=== PATIENT | female | born 1980 | race African-American/Black ===

== ENCOUNTER 2016-06-23 09:47 | Emergency (ER) | payer BC, MEDICAID ==
[~2016-06-23] VITALS: Ht 167.6 cm; Wt 217.3 kg
[~2016-06-23 09:47] MED LIST: CEFTIN250 MG PO; CIPRO 500MG TA500 MG PO; CLINDAMYCIN150 MG PO; FORTAMET500 MG PO; K-DUR 10 MEQ T10 MEQ; LORTAB 5/500 501 TAB PO; METFORMIN500 MG PO; NO HOME MEDICATIONS; PHENERGAN25 MG RC; PREDNISONE10 MG PO; PREDNISONE20 MG PO; PRENATAL VITAMI1 TA5 PO; PRENATAL1 TA1 PO; PRENATAL1 TA6 PO; PROAIR HFA0.09 MG/AC IH; PROVENTIL0.09 MG/A1 IH; TUSS PO; ZESTRIL 5MG5 MG PO; ZITHROMAX 250M250 MG PO; ZOFRAN 4MG T4 MG/TAB PO
[2016-06-23] MEDS ORDERED: FLEXERIL 1010 MG/TAB PO (11:10)
[2016-06-23] MEDS ORDERED: IBU800 M1 PO (11:10)
[2016-06-23 11:38] VITALS: BP 132/85; PULSE 72
== END 2016-06-23 11:39 | disposition home or self-care (01) ==
LOC: COL.ER 09:47
DX: M54.12 Radiculopathy, cervical region (principal)
CPT/HCPCS: J1885; J2360

== ENCOUNTER 2016-10-15 20:07 | Emergency (ER) | payer BC ==
[~2016-10-15] VITALS: Ht 167.6 cm; Wt 214.5 kg
[~2016-10-15 20:07] MED LIST changes: +FLEXERIL 1010 MG/TAB PO; +IBU800 M1 PO
[2016-10-15 20:15] VITALS: TEMP 98.7
[2016-10-15 21:13] VITALS: BP 175/93; PULSE 92
[2016-10-15 21:45] LABS: HIV 1/2 Antibodies Non-Reactive; HIV-1p24 Antigen Non-Reactive
== END 2016-10-15 21:59 | disposition home or self-care (01) ==
LOC: COL.ER 20:07
PROVIDERS: Nurse Practitioner
DX: Z20.6 Contact with and (suspected) exposure to human immunodeficiency virus [HIV] (principal); I10 Essential (primary) hypertension; J45.909 Unspecified asthma, uncomplicated; Z98.890 Other specified postprocedural states

== ENCOUNTER 2016-12-14 02:54 | Emergency (ER) | payer BC, OTHER ==
[2016-12-14 02:57] VITALS: BP 181/98; TEMP 98.2
[2016-12-14 03:36] LABS: COLLECTION METHOD CLEAN CATCH
[2016-12-14 03:41] LABS: MUCOUS Present /lpf; PH 7 (5-8); URINE APPEARANCE Clear; URINE BACTERIA Rare /hpf; URINE BILIRUBIN Negative (NEGATIVE); URINE BLOOD Negative (NEGATIVE); URINE COLOR Yellow; URINE GLUCOSE Negative (NEGATIVE); URINE KETONE Negative (NEGATIVE); URINE LEUKOCYTE ESTERASE Negative (NEGATIVE); URINE NITRATE Negative (NEGATIVE); URINE PROTEIN(semi-quant) Negative (NEGATIVE); URINE RBC 0-2 /hpf; URINE UROBILINOGEN Negative (NEGATIVE)
[2016-12-14 04:47] VITALS: PULSE 80
== END 2016-12-14 04:49 | disposition home or self-care (01) ==
LOC: COL.ER 02:54
PROVIDERS: Emergency Medicine
DX: R10.32 Left lower quadrant pain (principal); A54.9 Gonococcal infection, unspecified; Z32.02 Encounter for pregnancy test, result negative

== ENCOUNTER 2017-03-05 19:30 | Emergency (ER) | payer BC ==
[~2017-03-05] VITALS: Ht 167.6 cm; Wt 188.6 kg
[2017-03-05 19:36] VITALS: BP 181/86; TEMP 97.8
[2017-03-05 22:17] VITALS: PULSE 92
== END 2017-03-05 22:52 | disposition home or self-care (01) ==
LOC: COL.ER 19:30
DX: M79.672 Pain in left foot (principal); M79.662 Pain in left lower leg; J45.909 Unspecified asthma, uncomplicated; I10 Essential (primary) hypertension; Z98.890 Other specified postprocedural states

== ENCOUNTER → 2017-06-13 | Outpatient (CLI) | payer BC | LOC: COL.RAD 07:08 | DX: K76.0 Fatty (change of) liver, not elsewhere classified (principal); I51.7 Cardiomegaly; E66.01 Morbid (severe) obesity due to excess calories | CPT/HCPCS: Q9967 ==

== ENCOUNTER 2017-09-09 00:59 | Emergency (ER) | payer BC ==
[~2017-09-09] VITALS: Ht 167.6 cm; Wt 209.5 kg
[2017-09-09 01:02] VITALS: TEMP 98.1
[2017-09-09] MEDS ORDERED: MAXZIDE-25MG TA1 TAB PO (01:36)
[2017-09-09 02:04] VITALS: BP 148/90; PULSE 90
== END 2017-09-09 02:07 | disposition home or self-care (01) ==
LOC: COL.ER 00:59
DX: F41.9 Anxiety disorder, unspecified (principal); J45.909 Unspecified asthma, uncomplicated

== ENCOUNTER 2017-09-21 00:42 | Emergency (ER) | payer BC ==
[~2017-09-21] VITALS: Ht 167.6 cm; Wt 214.1 kg
[~2017-09-21 00:42] MED LIST changes: +MAXZIDE-25MG TA1 TAB PO
[2017-09-21 00:45] VITALS: BP 170/85; TEMP 98.2
[2017-09-21] MEDS ORDERED: ASPIRIN 81M81 MG/TA2 (01:01)
[2017-09-21 02:19] LABS: BASO % 0.2 % (0.0-2.0); EOS # 0.2 (0.0-0.7); EOS % 2.1 % (0-4.0); GRAN # 5.3 (1.4-6.5); GRAN % 53.9 % (42.2-75.2); HEMATOCRIT 33.6 % (37.0-47.0); LYMPH # 3.5 (1.2-3.4); LYMPH % 35.7 % (20.0-51.0); MEAN CELL VOLUME 84 fl (80.0-100.0); MEAN CORPUSCULAR HEMOGLOBIN 28 pg (27.0-31.0); MEAN CORPUSCULAR HGB CONC 33 g/dl (33.0-37.0); MEAN PLATELET VOLUME 9.3 fl (7.4-10.4); MONO # 0.8 (0.1-0.6); MONO % 7.8 % (1.7-9.3); PLATELET COUNT 351 K/mm3 (130-400); RED BLOOD COUNT 3.99 M/mm3 (4.10-5.30); REDCELL DISTRIBUTION WIDTH-CV 14.1 % (11.5-14.5)
[2017-09-21 02:29] LABS: ALANINE AMINOTRANSFERASE 29 U/L (9-52); ALBUMIN 3.5 gm/dL (3.5-5.0); ALKALINE PHOSPHATASE 76 U/L (50-136); ANION GAP 10 mmol/L (7-16); AST,SGOT 23 U/L (15-37); BILIRUBIN,TOTAL 0.3 mg/dL (0.0-1.0); BLOOD UREA NITROGEN 13 mg/dL (7-17); CALCIUM 8.9 mg/dL (8.4-10.2); CARBON DIOXIDE 28 mmol/L (22-30); CHLORIDE 100 mmol/L (98-107); CREATININE, serum 0.71 mg/dL (0.52-1.25); GLUCOSE 129 mg/dL (74-106); LIPASE 43 U/L (23-300); POTASSIUM 3.3 mmol/L (3.4-5.0); SODIUM 138 mmol/L (137-145); TOTAL PROTEIN 7.4 gm/dL (6.4-8.2)
[2017-09-21 02:41] LABS: TROPONIN-I < 0.012 ng/mL (0.000-0.034)
[2017-09-21] MEDS ORDERED: FLEXERIL 1010 MG/TAB PO (02:57)
[2017-09-21 03:03] VITALS: PULSE 85
== END 2017-09-21 03:03 | disposition home or self-care (01) ==
LOC: COL.ER 00:42
PROVIDERS: Emergency Medicine
DX: M79.602 Pain in left arm (principal); I10 Essential (primary) hypertension; E66.9 Obesity, unspecified; Z98.51 Tubal ligation status

== ENCOUNTER 2017-10-19 20:37 | Emergency (ER) | payer BC ==
[~2017-10-19] VITALS: Ht 167.6 cm; Wt 208.6 kg
[~2017-10-19 20:37] MED LIST changes: +ASPIRIN 81M81 MG/TA2
[2017-10-19 20:43] VITALS: BP 181/100; PULSE 111; TEMP 98.1
== END 2017-10-19 22:32 | disposition home or self-care (01) ==
LOC: COL.ER 20:37
DX: L73.9 Follicular disorder, unspecified (principal); I10 Essential (primary) hypertension; E66.9 Obesity, unspecified; Z79.82 Long term (current) use of aspirin; Z68.45 Body mass index [BMI] 70 or greater, adult

== ENCOUNTER 2017-11-06 20:20 | Emergency (ER) | payer BC ==
[~2017-11-06] VITALS: Ht 167.6 cm; Wt 207.3 kg
[2017-11-06 20:31] VITALS: TEMP 97.2
[2017-11-06 20:52] LABS: BASO % 0.3 % (0.0-2.0); EOS # 0.3 (0.0-0.7); EOS % 2.9 % (0-4.0); GRAN % 43.3 % (42.2-75.2); LYMPH # 4.4 (1.2-3.4); LYMPH % 46.9 % (20.0-51.0); MEAN CELL VOLUME 84 fl (80.0-100.0); MEAN CORPUSCULAR HEMOGLOBIN 27 pg (27.0-31.0); MEAN CORPUSCULAR HGB CONC 33 g/dl (33.0-37.0); MEAN PLATELET VOLUME 9.3 fl (7.4-10.4); MONO # 0.6 (0.1-0.6); MONO % 6.3 % (1.7-9.3); PLATELET COUNT 388 K/mm3 (130-400); RED BLOOD COUNT 4.38 M/mm3 (4.10-5.30); REDCELL DISTRIBUTION WIDTH-CV 14.3 % (11.5-14.5)
[2017-11-06 21:00] LABS: HEMATOCRIT 36.6 % (37.0-47.0)
[2017-11-06 21:02] LABS: PROTHROMBIN TIME 11.5 SECONDS (9.7-12.8)
[2017-11-06 21:05] LABS: PARTIAL THROMBOPLASTIN TIME 34.6 SECONDS (26.0-37.0)
[2017-11-06 21:16] LABS: ALANINE AMINOTRANSFERASE 30 U/L (9-52); ALBUMIN 4.1 gm/dL (3.5-5.0); ALKALINE PHOSPHATASE 63 U/L (50-136); AST,SGOT 45 U/L (15-37); BILIRUBIN,TOTAL 0.3 mg/dL (0.0-1.0); BLOOD UREA NITROGEN 14 mg/dL (7-17); CALCIUM 8.9 mg/dL (8.4-10.2); CARBON DIOXIDE 27 mmol/L (22-30); CREATININE, serum 0.61 mg/dL (0.52-1.25); GLUCOSE 154 mg/dL (74-106); POTASSIUM 3.4 mmol/L (3.4-5.0); SODIUM 139 mmol/L (137-145); TOTAL PROTEIN 7.9 gm/dL (6.4-8.2)
[2017-11-06 21:18] LABS: CHLORIDE 100 mmol/L (98-107)
[2017-11-06 21:19] LABS: ANION GAP 12 mmol/L (7-16)
[2017-11-06 21:28] LABS: TROPONIN-I < 0.012 ng/mL (0.000-0.034)
[2017-11-06] MEDS ORDERED: FLEXERIL 1010 MG/TAB PO (21:41)
[2017-11-06] MEDS ORDERED: LOPRESSOR 225 MG/TAB PO (21:41)
[2017-11-06 22:11] VITALS: BP 149/90; PULSE 102
== END 2017-11-06 22:11 | disposition home or self-care (01) ==
LOC: COL.ER 20:20
PROVIDERS: Family Medicine
DX: R07.89 Other chest pain (principal); M54.12 Radiculopathy, cervical region; I10 Essential (primary) hypertension; R00.2 Palpitations

== ENCOUNTER 2018-03-29 14:46 | Emergency (ER) | payer BC ==
[~2018-03-29] VITALS: Ht 167.6 cm; Wt 208.2 kg
[~2018-03-29 14:46] MED LIST changes: +LOPRESSOR 225 MG/TAB PO
[2018-03-29 14:51] VITALS: TEMP 97
[2018-03-29] MEDS ORDERED: PRINIVIL20 MG PO (15:13)
[2018-03-29] MEDS ORDERED: PROAIR HFA0.09 MG/AC IH (15:13)
[2018-03-29] MEDS ORDERED: GLUCOPHAGE XR500 M1 PO (15:13)
[2018-03-29 15:32] LABS: BASO % 0.2 % (0.0-2.0); EOS # 0.2 (0.0-0.7); EOS % 1.7 % (0-4.0); GRAN # 5.3 (1.4-6.5); GRAN % 57.6 % (42.2-75.2); HEMATOCRIT 38.2 % (37.0-47.0); HEMOGLOBIN 12.7 g/dl (12.5-16.0); LYMPH % 32.6 % (20.0-51.0); MEAN CELL VOLUME 85 fl (80.0-100.0); MEAN CORPUSCULAR HEMOGLOBIN 28 pg (27.0-31.0); MEAN CORPUSCULAR HGB CONC 33 g/dl (33.0-37.0); MEAN PLATELET VOLUME 9.3 fl (7.4-10.4); MONO # 0.7 (0.1-0.6); MONO % 7.6 % (1.7-9.3); PLATELET COUNT 374 K/mm3 (130-400)
[2018-03-29 15:50] LABS: ALBUMIN 4.1 gm/dL (3.5-5.0); BILIRUBIN,TOTAL 0.2 mg/dL (0.0-1.0); C-REACTIVE PROTEIN 2.6 mg/dL (0.0-0.9); CALCIUM 9.5 mg/dL (8.4-10.2); CREATININE, serum 0.7 mg/dL (0.52-1.25); POTASSIUM 3.4 mmol/L (3.4-5.0); TOTAL PROTEIN 7.9 gm/dL (6.4-8.2)
[2018-03-29 16:17] LABS: HIV 1/2 Antibodies Non-Reactive; HIV-1p24 Antigen Non-Reactive
[2018-03-29 16:41] VITALS: BP 156/80; PULSE 80
== END 2018-03-29 16:43 | disposition home or self-care (01) ==
LOC: COL.ER 14:46
PROVIDERS: Emergency Medicine
DX: Z20.2 Contact with and (suspected) exposure to infections with a predominantly sexual mode of transmission (principal); J45.909 Unspecified asthma, uncomplicated; E11.9 Type 2 diabetes mellitus without complications; I10 Essential (primary) hypertension; E66.01 Morbid (severe) obesity due to excess calories; Z68.45 Body mass index [BMI] 70 or greater, adult; Z79.84 Long term (current) use of oral hypoglycemic drugs
CPT/HCPCS: J0696

== ENCOUNTER 2018-04-07 10:11 | Emergency (ER) | payer BC ==
[~2018-04-07] VITALS: Ht 167.6 cm; Wt 205.0 kg
[~2018-04-07 10:11] MED LIST changes: +GLUCOPHAGE XR500 M1 PO; +PRINIVIL20 MG PO
[2018-04-07 10:14] VITALS: TEMP 98.6
[2018-04-07 11:09] LABS: COLLECTION METHOD CLEAN CATCH
[2018-04-07 11:13] LABS: BASO % 0.3 % (0.0-2.0); EOS # 0.2 (0.0-0.7); EOS % 2.3 % (0-4.0); GRAN # 3.4 (1.4-6.5); HEMATOCRIT 39.8 % (37.0-47.0); HEMOGLOBIN 12.7 g/dl (12.5-16.0); LYMPH # 2.6 (1.2-3.4); LYMPH % 38.2 % (20.0-51.0); MEAN CELL VOLUME 86 fl (80.0-100.0); MEAN CORPUSCULAR HEMOGLOBIN 28 pg (27.0-31.0); MEAN CORPUSCULAR HGB CONC 32 g/dl (33.0-37.0); MEAN PLATELET VOLUME 9.3 fl (7.4-10.4); MONO # 0.7 (0.1-0.6); MONO % 9.9 % (1.7-9.3); PLATELET COUNT 393 K/mm3 (130-400); RED BLOOD COUNT 4.61 M/mm3 (4.10-5.30); REDCELL DISTRIBUTION WIDTH-CV 13.6 % (11.5-14.5)
[2018-04-07 11:25] LABS: ALBUMIN 4.1 gm/dL (3.5-5.0); BILIRUBIN,TOTAL 0.4 mg/dL (0.0-1.0); CALCIUM 9.3 mg/dL (8.4-10.2); CREATININE, serum 0.65 mg/dL (0.52-1.25); POTASSIUM 3.3 mmol/L (3.4-5.0); TOTAL PROTEIN 7.9 gm/dL (6.4-8.2)
[2018-04-07 11:27] LABS: PH 6 (5-8); SQUAMOUS EPITHELIAL 0-2 /hpf; URINE APPEARANCE Hazy; URINE BACTERIA None Seen /hpf; URINE BILIRUBIN Negative (NEGATIVE); URINE BLOOD 3+ (NEGATIVE); URINE COLOR Yellow; URINE GLUCOSE Negative (NEGATIVE); URINE KETONE Negative (NEGATIVE); URINE LEUKOCYTE ESTERASE 2+ (NEGATIVE); URINE NITRATE Negative (NEGATIVE); URINE PROTEIN(semi-quant) 2+ (NEGATIVE); URINE RBC >50 /hpf; URINE UROBILINOGEN Negative (NEGATIVE)
[2018-04-07] MEDS ORDERED: CEPHALEXIN500 M1 PO (13:21)
[2018-04-07] MEDS ORDERED: NORCO 325 MG-7.1 TAB PO (13:51)
[2018-04-07 14:07] VITALS: BP 148/60; PULSE 82
== END 2018-04-07 14:08 | disposition home or self-care (01) ==
LOC: COL.ER 10:11
PROVIDERS: Physician Assistant
DX: N30.00 Acute cystitis without hematuria (principal); N20.1 Calculus of ureter; E11.9 Type 2 diabetes mellitus without complications; I10 Essential (primary) hypertension; E66.01 Morbid (severe) obesity due to excess calories; Z68.45 Body mass index [BMI] 70 or greater, adult; Z79.84 Long term (current) use of oral hypoglycemic drugs; Z90.49 Acquired absence of other specified parts of digestive tract; Z88.6 Allergy status to analgesic agent
CPT/HCPCS: J1885; J2550; J3010; J7030; Q9967

== ENCOUNTER 2018-04-19 23:38 | Emergency (ER) | payer BC ==
[~2018-04-19] VITALS: Ht 167.6 cm; Wt 205.0 kg
[~2018-04-19 23:38] MED LIST changes: +CEPHALEXIN500 M1 PO; +NORCO 325 MG-7.1 TAB PO
[2018-04-19 23:41] VITALS: TEMP 97.6
[2018-04-20] MEDS ORDERED: FLEXERIL 1010 MG/TAB PO (00:20)
[2018-04-20 00:43] LABS: COLLECTION METHOD CLEAN CATCH
[2018-04-20 00:50] LABS: PH 5 (5-8); URINE APPEARANCE Clear; URINE BACTERIA None Seen /hpf; URINE BILIRUBIN Negative (NEGATIVE); URINE BLOOD Negative (NEGATIVE); URINE COLOR Yellow; URINE GLUCOSE Negative (NEGATIVE); URINE KETONE Negative (NEGATIVE); URINE LEUKOCYTE ESTERASE Negative (NEGATIVE); URINE NITRATE Negative (NEGATIVE); URINE PROTEIN(semi-quant) Negative (NEGATIVE); URINE RBC 0-2 /hpf; URINE UROBILINOGEN Negative (NEGATIVE)
[2018-04-20 01:01] LABS: BASO % 0.4 % (0.0-2.0); EOS # 0.2 (0.0-0.7); EOS % 2.2 % (0-4.0); GRAN # 3.9 (1.4-6.5); GRAN % 46.6 % (42.2-75.2); HEMOGLOBIN 11.8 g/dl (12.5-16.0); LYMPH # 3.5 (1.2-3.4); LYMPH % 41.8 % (20.0-51.0); MEAN CELL VOLUME 85 fl (80.0-100.0); MEAN CORPUSCULAR HEMOGLOBIN 28 pg (27.0-31.0); MEAN CORPUSCULAR HGB CONC 33 g/dl (33.0-37.0); MEAN PLATELET VOLUME 9.3 fl (7.4-10.4); MONO # 0.7 (0.1-0.6); MONO % 8.6 % (1.7-9.3); PLATELET COUNT 358 K/mm3 (130-400); RED BLOOD COUNT 4.25 M/mm3 (4.10-5.30); REDCELL DISTRIBUTION WIDTH-CV 13.8 % (11.5-14.5)
[2018-04-20 01:02] LABS: HEMATOCRIT 36.3 % (37.0-47.0)
[2018-04-20 01:12] LABS: ALANINE AMINOTRANSFERASE 18 U/L (9-52); ALBUMIN 3.7 gm/dL (3.5-5.0); ALKALINE PHOSPHATASE 62 U/L (50-136); ANION GAP 4 mmol/L (7-16); AST,SGOT 18 U/L (15-37); BILIRUBIN,TOTAL 0.2 mg/dL (0.0-1.0); BLOOD UREA NITROGEN 15 mg/dL (7-17); CARBON DIOXIDE 31 mmol/L (22-30); CHLORIDE 101 mmol/L (98-107); CREATININE, serum 0.62 mg/dL (0.52-1.25); GLUCOSE 142 mg/dL (74-106); POTASSIUM 3.5 mmol/L (3.4-5.0); SODIUM 136 mmol/L (137-145)
[2018-04-20 01:23] LABS: TROPONIN-I < 0.012 ng/mL (0.000-0.034)
[2018-04-20] MEDS ORDERED: FLAGYL500 MG PO (02:14)
[2018-04-20 02:20] VITALS: BP 131/80; PULSE 91
== END 2018-04-20 02:22 | disposition home or self-care (01) ==
LOC: COL.ER 23:38
PROVIDERS: Nurse Practitioner
DX: N76.0 Acute vaginitis (principal); B96.89 Other specified bacterial agents as the cause of diseases classified elsewhere; R10.9 Unspecified abdominal pain; I10 Essential (primary) hypertension; E11.9 Type 2 diabetes mellitus without complications; R07.89 Other chest pain; Z79.84 Long term (current) use of oral hypoglycemic drugs; Z90.89 Acquired absence of other organs; Z98.890 Other specified postprocedural states
CPT/HCPCS: J1885

== ENCOUNTER 2018-06-28 22:40 | Emergency (ER) | payer BC ==
[~2018-06-28] VITALS: Ht 170.2 cm; Wt 205.9 kg
[~2018-06-28 22:40] MED LIST changes: +FLAGYL500 MG PO
[2018-06-28 22:57] VITALS: TEMP 97.8
[2018-06-29 01:29] LABS: BASO % 0.3 % (0.0-2.0); EOS # 0.3 (0.0-0.7); EOS % 2.5 % (0-4.0); GRAN # 4.9 (1.4-6.5); GRAN % 49.2 % (42.2-75.2); HEMATOCRIT 34.8 % (37.0-47.0); HEMOGLOBIN 11.2 g/dl (12.5-16.0); LYMPH % 40.2 % (20.0-51.0); MEAN CELL VOLUME 86 fl (80.0-100.0); MEAN CORPUSCULAR HEMOGLOBIN 28 pg (27.0-31.0); MEAN CORPUSCULAR HGB CONC 32 g/dl (33.0-37.0); MEAN PLATELET VOLUME 9.6 fl (7.4-10.4); MONO # 0.8 (0.1-0.6); MONO % 7.6 % (1.7-9.3); PLATELET COUNT 366 K/mm3 (130-400); RED BLOOD COUNT 4.04 M/mm3 (4.10-5.30); REDCELL DISTRIBUTION WIDTH-CV 13.8 % (11.5-14.5)
[2018-06-29] MEDS ORDERED: LOPRESSOR 225 MG/TAB PO (01:35)
[2018-06-29 01:45] LABS: ALANINE AMINOTRANSFERASE 14 U/L (9-52); ALBUMIN 3.8 gm/dL (3.5-5.0); ALKALINE PHOSPHATASE 63 U/L (50-136); ANION GAP 7 mmol/L (7-16); AST,SGOT 19 U/L (15-37); BILIRUBIN,TOTAL 0.2 mg/dL (0.0-1.0); BLOOD UREA NITROGEN 15 mg/dL (7-17); C-REACTIVE PROTEIN 2.3 mg/dL (0.0-0.9); CALCIUM 8.9 mg/dL (8.4-10.2); CARBON DIOXIDE 29 mmol/L (22-30); CHLORIDE 102 mmol/L (98-107); CREATININE, serum 0.63 mg/dL (0.52-1.25); GLUCOSE 189 mg/dL (74-106); POTASSIUM 3.7 mmol/L (3.4-5.0); SODIUM 139 mmol/L (137-145); TOTAL PROTEIN 7.2 gm/dL (6.4-8.2)
[2018-06-29 01:52] LABS: TROPONIN-I < 0.012 ng/mL (0.000-0.035)
[2018-06-29 02:37] LABS: COLLECTION METHOD CLEAN CATCH
[2018-06-29 02:46] LABS: MUCOUS Present /lpf; PH 5 (5-8); URINE APPEARANCE Clear; URINE BACTERIA None Seen /hpf; URINE BILIRUBIN Negative (NEGATIVE); URINE BLOOD Negative (NEGATIVE); URINE COLOR Yellow; URINE GLUCOSE 1+ (NEGATIVE); URINE KETONE Negative (NEGATIVE); URINE LEUKOCYTE ESTERASE Negative (NEGATIVE); URINE NITRATE Negative (NEGATIVE); URINE PROTEIN(semi-quant) Negative (NEGATIVE); URINE RBC 0-2 /hpf; URINE UROBILINOGEN Negative (NEGATIVE)
[2018-06-29 03:15] VITALS: BP 107/75; PULSE 111
== END 2018-06-29 03:15 | disposition home or self-care (01) ==
LOC: COL.ER 22:40
PROVIDERS: Physician Assistant
DX: R51 Headache (principal); R07.89 Other chest pain; M79.622 Pain in left upper arm; J45.909 Unspecified asthma, uncomplicated; Z98.890 Other specified postprocedural states; Z79.84 Long term (current) use of oral hypoglycemic drugs
CPT/HCPCS: J1200; J2550; J7030

== ENCOUNTER → 2018-07-15 | Outpatient (CLI) | payer BC | LOC: SUN.DIA 14:59 | DX: E11.9 Type 2 diabetes mellitus without complications (principal); I10 Essential (primary) hypertension; E66.9 Obesity, unspecified | CPT/HCPCS: G0108 ==

== ENCOUNTER 2018-09-24 21:59 | Emergency (ER) | payer BC ==
[~2018-09-24] VITALS: Ht 167.6 cm; Wt 213.6 kg
[2018-09-24 22:02] VITALS: TEMP 98
[2018-09-24 22:29] LABS: BASO % 0.2 % (0.0-2.0); EOS # 0.2 (0.0-0.7); EOS % 2.2 % (0-4.0); GRAN # 4.4 (1.4-6.5); GRAN % 47.8 % (42.2-75.2); HEMATOCRIT 36.2 % (37.0-47.0); HEMOGLOBIN 11.8 g/dl (12.5-16.0); LYMPH # 3.9 (1.2-3.4); LYMPH % 42.8 % (20.0-51.0); MEAN CELL VOLUME 85 fl (80.0-100.0); MEAN CORPUSCULAR HEMOGLOBIN 28 pg (27.0-31.0); MEAN CORPUSCULAR HGB CONC 33 g/dl (33.0-37.0); MEAN PLATELET VOLUME 9.5 fl (7.4-10.4); MONO # 0.6 (0.1-0.6); MONO % 6.6 % (1.7-9.3); PLATELET COUNT 354 K/mm3 (130-400); RED BLOOD COUNT 4.24 M/mm3 (4.10-5.30)
[2018-09-24 22:33] LABS: PROTHROMBIN TIME 11.7 SECONDS (9.7-12.8)
[2018-09-24 22:37] LABS: D-DIMER < 200.00 ng/mLDDu (200-230)
[2018-09-24 22:39] LABS: ALANINE AMINOTRANSFERASE 11 U/L (9-52); ALBUMIN 3.9 gm/dL (3.5-5.0); ALKALINE PHOSPHATASE 54 U/L (50-136); ANION GAP 9 mmol/L (7-16); AST,SGOT 30 U/L (15-37); BILIRUBIN,TOTAL 0.3 mg/dL (0.0-1.0); BLOOD UREA NITROGEN 17 mg/dL (7-17); CALCIUM 9.1 mg/dL (8.4-10.2); CARBON DIOXIDE 28 mmol/L (22-30); CHLORIDE 102 mmol/L (98-107); CREATININE, serum 0.97 (0.52-1.25); GLUCOSE 169 mg/dL (74-106); LIPASE 66 U/L (23-300); POTASSIUM 4.2 mmol/L (3.4-5.0); SODIUM 140 mmol/L (137-145); TOTAL PROTEIN 7.7 gm/dL (6.4-8.2)
[2018-09-24 22:51] LABS: TROPONIN-I < 0.012 ng/mL (0.000-0.035)
[2018-09-25 02:21] VITALS: BP 124/70; PULSE 102
== END 2018-09-25 02:21 | disposition home or self-care (01) ==
LOC: COL.ER 21:59
PROVIDERS: Emergency Medicine
DX: R07.89 Other chest pain (principal); J45.909 Unspecified asthma, uncomplicated; Z98.890 Other specified postprocedural states; Z90.89 Acquired absence of other organs
CPT/HCPCS: J2405; J7030

== ENCOUNTER 2018-09-29 02:09 | Emergency (ER) | payer BC ==
[~2018-09-29] VITALS: Ht 170.2 cm; Wt 214.1 kg
[2018-09-29 02:14] VITALS: TEMP 98.3
[2018-09-29] MEDS ORDERED: MAXZIDE-25MG TA1 TAB PO (02:17)
[2018-09-29 03:12] VITALS: PULSE 89
[2018-09-29 04:00] LABS: HIV 1/2 Antibodies Non-Reactive; HIV-1p24 Antigen Non-Reactive
[2018-09-29] MEDS ORDERED: ATARAX 25MG25 MG/TAB PO (04:49)
[2018-09-29 04:55] VITALS: BP 156/85
== END 2018-09-29 05:02 | disposition home or self-care (01) ==
LOC: COL.ER 02:09
PROVIDERS: Emergency Medicine
DX: F41.9 Anxiety disorder, unspecified (principal); E11.9 Type 2 diabetes mellitus without complications; E66.01 Morbid (severe) obesity due to excess calories; G43.909 Migraine, unspecified, not intractable, without status migrainosus; Z11.3 Encounter for screening for infections with a predominantly sexual mode of transmission; Z87.442 Personal history of urinary calculi; Z87.42 Personal history of other diseases of the female genital tract; Z79.84 Long term (current) use of oral hypoglycemic drugs
CPT/HCPCS: J0696

== ENCOUNTER 2018-10-11 21:04 | Emergency (ER) | payer BC ==
[~2018-10-11] VITALS: Ht 167.6 cm; Wt 214.1 kg
[~2018-10-11 21:04] MED LIST changes: +ATARAX 25MG25 MG/TAB PO
[2018-10-11 21:10] VITALS: TEMP 97.2
[2018-10-11 21:49] LABS: BASO % 0.4 % (0.0-2.0); EOS # 0.2 (0.0-0.7); EOS % 1.8 % (0-4.0); GRAN # 5.5 (1.4-6.5); GRAN % 52.7 % (42.2-75.2); HEMOGLOBIN 11.4 g/dl (12.5-16.0); LYMPH % 38.4 % (20.0-51.0); MEAN CELL VOLUME 86 fl (80.0-100.0); MEAN CORPUSCULAR HEMOGLOBIN 28 pg (27.0-31.0); MEAN CORPUSCULAR HGB CONC 32 g/dl (33.0-37.0); MEAN PLATELET VOLUME 9.4 fl (7.4-10.4); MONO # 0.7 (0.1-0.6); MONO % 6.4 % (1.7-9.3); PLATELET COUNT 362 K/mm3 (130-400)
[2018-10-11 21:52] LABS: HEMATOCRIT 35.3 % (37.0-47.0)
[2018-10-11 22:00] LABS: ALANINE AMINOTRANSFERASE 12 U/L (9-52); ALBUMIN 3.7 gm/dL (3.5-5.0); ALKALINE PHOSPHATASE 66 U/L (50-136); ANION GAP 10 mmol/L (7-16); AST,SGOT 29 U/L (15-37); BILIRUBIN,TOTAL 0.2 mg/dL (0.0-1.0); BLOOD UREA NITROGEN 11 mg/dL (7-17); CALCIUM 8.9 mg/dL (8.4-10.2); CARBON DIOXIDE 28 mmol/L (22-30); CHLORIDE 102 mmol/L (98-107); CREATININE, serum 0.63 (0.52-1.25); GLUCOSE 170 mg/dL (74-106); POTASSIUM 3.4 mmol/L (3.4-5.0); SODIUM 140 mmol/L (137-145); TOTAL PROTEIN 7.2 gm/dL (6.4-8.2)
[2018-10-11 22:17] LABS: TROPONIN-I < 0.012 ng/mL (0.000-0.035)
[2018-10-12 01:26] VITALS: BP 149/77; PULSE 96
== END 2018-10-12 01:26 | disposition home or self-care (01) ==
LOC: COL.ER 21:04
PROVIDERS: Emergency Medicine
DX: R07.89 Other chest pain (principal); F41.9 Anxiety disorder, unspecified; E11.9 Type 2 diabetes mellitus without complications; E66.9 Obesity, unspecified; I10 Essential (primary) hypertension; G43.909 Migraine, unspecified, not intractable, without status migrainosus; Z87.442 Personal history of urinary calculi; Z79.84 Long term (current) use of oral hypoglycemic drugs
CPT/HCPCS: J1885

== ENCOUNTER → 2018-11-11 | Outpatient (CLI) | payer BC ==
[~2018-11-11] VITALS: Ht 167.6 cm; Wt 211.1 kg
[2018-11-11 10:38] VITALS: BP 189/90; PULSE 95
[2018-11-11 12:19] VITALS: BP 161/76; PULSE 110
--- NOTE | 2018-11-11 12:19 | NUR ---
injection given of lexiscan 0.4mg iv
[2018-11-11 12:20] VITALS: BP 162/82; PULSE 108
[2018-11-11 12:21] VITALS: BP 166/77; PULSE 104
[2018-11-11 12:22] VITALS: BP 158/72; PULSE 103
== END ==
LOC: COL.VAS 10:00 → COL.CARD 10:45
DX: R07.89 Other chest pain (principal)
CPT/HCPCS: A9500; J2785

== ENCOUNTER → 2019-03-26 | Outpatient (CLI) | payer SELFPAY | LOC: MC.RAD 09:56 | DX: N60.42 Mammary duct ectasia of left breast (principal); N64.52 Nipple discharge | CPT/HCPCS: G0279 ==

== ENCOUNTER → 2019-03-30 | Outpatient (CLI) | payer SELFPAY | LOC: MC.RAD 07:00 | DX: N64.52 Nipple discharge (principal); N64.89 Other specified disorders of breast ==

== ENCOUNTER 2020-01-09 09:02 | Emergency (ER) | payer OTHER ==
[2020-01-09 09:15] VITALS: TEMP 98.4
[2020-01-09 11:10] VITALS: BP 132/88; PULSE 81
[2020-01-09] MEDS ORDERED: PREDNISONE10 MG PO (11:17)
== END 2020-01-09 11:24 | disposition home or self-care (01) ==
LOC: COL.ER 09:02
DX: J45.901 Unspecified asthma with (acute) exacerbation (principal); U07.1 COVID-19; Z79.84 Long term (current) use of oral hypoglycemic drugs
CPT/HCPCS: J7512

== ENCOUNTER 2020-01-18 09:42 | Emergency (ER) | payer OTHER ==
[~2020-01-18] VITALS: Ht 167.6 cm; Wt 157.7 kg
[2020-01-18 09:49] VITALS: TEMP 97.2
[2020-01-18 10:26] LABS: BASO % 0.5 % (0.0-2.0); EOS # 0.1 (0.0-0.7); EOS % 1.8 % (0-4.0); GRAN # 3.1 (1.4-6.5); GRAN % 47.1 % (42.2-75.2); HEMOGLOBIN 11.2 g/dl (12.5-16.0); LYMPH # 2.8 (1.2-3.4); LYMPH % 41.6 % (20.0-51.0); MEAN CELL VOLUME 86 fl (80.0-100.0); MEAN CORPUSCULAR HEMOGLOBIN 29 pg (27.0-31.0); MEAN CORPUSCULAR HGB CONC 33 g/dl (33.0-37.0); MEAN PLATELET VOLUME 9.2 fl (7.4-10.4); MONO # 0.6 (0.1-0.6); MONO % 8.8 % (1.7-9.3); PLATELET COUNT 367 K/mm3 (130-400); RED BLOOD COUNT 3.92 M/mm3 (4.10-5.30); REDCELL DISTRIBUTION WIDTH-CV 13.9 % (11.5-14.5)
[2020-01-18 10:27] LABS: HEMATOCRIT 33.6 % (37.0-47.0)
[2020-01-18 11:31] VITALS: BP 139/79; PULSE 77
== END 2020-01-18 11:31 | disposition home or self-care (01) ==
LOC: COL.ER 09:42
PROVIDERS: Nurse Practitioner Primary Care
DX: O26.851 Spotting complicating pregnancy, first trimester (principal); E11.9 Type 2 diabetes mellitus without complications; I10 Essential (primary) hypertension; Z3A.01 Less than 8 weeks gestation of pregnancy; Z98.84 Bariatric surgery status; Z88.0 Allergy status to penicillin; Z88.1 Allergy status to other antibiotic agents; Z88.6 Allergy status to analgesic agent; Z79.52 Long term (current) use of systemic steroids; Z79.84 Long term (current) use of oral hypoglycemic drugs

== ENCOUNTER 2020-01-28 21:39 | Emergency (ER) | payer OTHER ==
[~2020-01-28] VITALS: Ht 167.6 cm; Wt 156.4 kg
[2020-01-28 21:40] VITALS: TEMP 97.9
[2020-01-28 22:44] LABS: BASO % 0.4 % (0.0-2.0); EOS # 0.1 (0.0-0.7); GRAN # 3.7 (1.4-6.5); GRAN % 48.1 % (42.2-75.2); HEMOGLOBIN 11.1 g/dl (12.5-16.0); LYMPH # 3.3 (1.2-3.4); LYMPH % 42.5 % (20.0-51.0); MEAN CELL VOLUME 88 fl (80.0-100.0); MEAN CORPUSCULAR HEMOGLOBIN 28 pg (27.0-31.0); MEAN CORPUSCULAR HGB CONC 33 g/dl (33.0-37.0); MEAN PLATELET VOLUME 9.9 fl (7.4-10.4); MONO # 0.6 (0.1-0.6); MONO % 7.9 % (1.7-9.3); PLATELET COUNT 360 K/mm3 (130-400); RED BLOOD COUNT 3.91 M/mm3 (4.10-5.30); REDCELL DISTRIBUTION WIDTH-CV 14.2 % (11.5-14.5)
[2020-01-28 22:56] LABS: HEMATOCRIT 34.2 % (37.0-47.0)
[2020-01-28 23:03] LABS: ALBUMIN 4.1 gm/dL (3.5-5.0); BILIRUBIN,TOTAL 0.5 mg/dL (0.0-1.0); CALCIUM 9.1 mg/dL (8.4-10.2); CREATININE, serum 0.7 (0.52-1.25); TOTAL PROTEIN 7.5 gm/dL (6.4-8.2)
[2020-01-28 23:09] LABS: COLLECTION METHOD CLEAN CATCH
[2020-01-28 23:16] LABS: MUCOUS Present /lpf; PH 6 (5-8); URINE APPEARANCE Hazy; URINE BACTERIA Rare /hpf; URINE BILIRUBIN Negative (NEGATIVE); URINE BLOOD Negative (NEGATIVE); URINE COLOR Yellow; URINE GLUCOSE Negative (NEGATIVE); URINE KETONE Negative (NEGATIVE); URINE LEUKOCYTE ESTERASE Negative (NEGATIVE); URINE NITRATE Negative (NEGATIVE); URINE PROTEIN(semi-quant) 1+ (NEGATIVE)
[2020-01-28 23:40] VITALS: BP 176/92; PULSE 80
== END 2020-01-28 23:45 | disposition home or self-care (01) ==
LOC: COL.ER 21:39
PROVIDERS: Emergency Medicine
DX: S06.0X0A Concussion without loss of consciousness, initial encounter (principal); S00.93XA Contusion of unspecified part of head, initial encounter; S30.1XXA Contusion of abdominal wall, initial encounter; I10 Essential (primary) hypertension; E11.9 Type 2 diabetes mellitus without complications; Z88.0 Allergy status to penicillin; Z88.6 Allergy status to analgesic agent; Z88.1 Allergy status to other antibiotic agents; Z79.52 Long term (current) use of systemic steroids; Z79.84 Long term (current) use of oral hypoglycemic drugs; Y04.8XXA Assault by other bodily force, initial encounter; Y92.009 Unspecified place in unspecified non-institutional (private) residence as the place of occurrence of the external cause
CPT/HCPCS: J2405; J3010; J7030

== ENCOUNTER 2020-02-01 20:29 | Emergency (ER) | payer OTHER ==
[~2020-02-01] VITALS: Ht 167.6 cm; Wt 158.6 kg
[2020-02-01 21:24] LABS: COLLECTION METHOD CLEAN CATCH
[2020-02-01 21:34] LABS: MUCOUS Present /lpf; PH 6 (5-8); SQUAMOUS EPITHELIAL 0-2 /hpf; URINE APPEARANCE Clear; URINE BACTERIA Rare /hpf; URINE BILIRUBIN Negative (NEGATIVE); URINE BLOOD Negative (NEGATIVE); URINE COLOR Yellow; URINE GLUCOSE Negative (NEGATIVE); URINE KETONE Negative (NEGATIVE); URINE LEUKOCYTE ESTERASE Negative (NEGATIVE); URINE NITRATE Negative (NEGATIVE); URINE PROTEIN(semi-quant) Negative (NEGATIVE); URINE RBC 0-2 /hpf
[2020-02-01 22:05] LABS: HIV 1/2 Antibodies Non-Reactive; HIV-1p24 Antigen Non-Reactive
[2020-02-01 23:30] VITALS: BP 149/82; PULSE 89; TEMP 98.4
== END 2020-02-01 23:33 | disposition home or self-care (01) ==
LOC: COL.ER 20:29
PROVIDERS: Nurse Practitioner Primary Care
DX: Z11.3 Encounter for screening for infections with a predominantly sexual mode of transmission (principal); E11.9 Type 2 diabetes mellitus without complications; I10 Essential (primary) hypertension; Z98.84 Bariatric surgery status; Z90.10 Acquired absence of unspecified breast and nipple; Z88.0 Allergy status to penicillin; Z88.6 Allergy status to analgesic agent; Z88.5 Allergy status to narcotic agent; Z79.84 Long term (current) use of oral hypoglycemic drugs

== ENCOUNTER 2020-02-11 10:43 | Emergency (ER) | payer OTHER ==
[~2020-02-11] VITALS: Ht 15.2 cm; Wt 155.0 kg
[2020-02-11 11:12] LABS: BASO % 0.3 % (0.0-2.0); EOS # 0.1 (0.0-0.7); EOS % 1.9 % (0-4.0); GRAN # 2.7 (1.4-6.5); GRAN % 42.1 % (42.2-75.2); HEMATOCRIT 36.8 % (37.0-47.0); HEMOGLOBIN 11.8 g/dl (12.5-16.0); LYMPH % 47.3 % (20.0-51.0); MEAN CELL VOLUME 89 fl (80.0-100.0); MEAN CORPUSCULAR HEMOGLOBIN 28 pg (27.0-31.0); MEAN CORPUSCULAR HGB CONC 32 g/dl (33.0-37.0); MEAN PLATELET VOLUME 9.3 fl (7.4-10.4); MONO # 0.5 (0.1-0.6); MONO % 8.2 % (1.7-9.3); PLATELET COUNT 408 K/mm3 (130-400); RED BLOOD COUNT 4.16 M/mm3 (4.10-5.30); REDCELL DISTRIBUTION WIDTH-CV 13.9 % (11.5-14.5)
[2020-02-11 11:24] LABS: ALBUMIN 4.3 gm/dL (3.5-5.0); BILIRUBIN,TOTAL 0.5 mg/dL (0.0-1.0); CALCIUM 9.4 mg/dL (8.4-10.2); CREATININE, serum 0.67 (0.52-1.25); POTASSIUM 3.5 mmol/L (3.4-5.0); TOTAL PROTEIN 7.7 gm/dL (6.4-8.2)
[2020-02-11 11:52] LABS: COLLECTION METHOD CLEAN CATCH
[2020-02-11 12:05] LABS: MUCOUS Present /lpf; PH 8 (5-8); SQUAMOUS EPITHELIAL 0-2 /hpf; URINE APPEARANCE Hazy; URINE BACTERIA Rare /hpf; URINE BILIRUBIN Negative (NEGATIVE); URINE BLOOD 3+ (NEGATIVE); URINE COLOR Yellow; URINE GLUCOSE Negative (NEGATIVE); URINE KETONE Negative (NEGATIVE); URINE LEUKOCYTE ESTERASE Negative (NEGATIVE); URINE NITRATE Negative (NEGATIVE); URINE PROTEIN(semi-quant) Negative (NEGATIVE); URINE RBC 20-50 /hpf; URINE UROBILINOGEN Negative (NEGATIVE)
[2020-02-11 12:58] VITALS: BP 142/74; PULSE 65; TEMP 98.1
== END 2020-02-11 12:59 | disposition home or self-care (01) ==
LOC: COL.ER 10:43
PROVIDERS: Physician Assistant
DX: R55 Syncope and collapse (principal); E11.9 Type 2 diabetes mellitus without complications; I10 Essential (primary) hypertension; J45.909 Unspecified asthma, uncomplicated; Z88.0 Allergy status to penicillin; Z88.6 Allergy status to analgesic agent; Z88.1 Allergy status to other antibiotic agents; Z79.84 Long term (current) use of oral hypoglycemic drugs; Z86.19 Personal history of other infectious and parasitic diseases